=== PATIENT | female | born 1935 | race Caucasian/White ===

== ENCOUNTER 2017-10-29 14:25 | Emergency (ER) | payer MEDICARE, BC ==
[2017-10-29 14:38] VITALS: BP 146/84
[2017-10-29] MEDS ORDERED: Acetaminophen 325 MG Tab PO ONE (14:55)
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
--- NOTE | 2017-10-30 11:00 | CR ---
Heart size within normal limits. No pneumothorax. Elevated right hemidiaphragm. Hiatal hernia. No foc al consolidation.
== END 2017-10-29 15:42 | disposition home or self-care (01) ==
LOC: JP.ED 14:25
DX: S20.20XA Contusion of thorax, unspecified, initial encounter (principal); F41.9 Anxiety disorder, unspecified; Z79.899 Other long term (current) drug therapy; Z88.0 Allergy status to penicillin; Z88.1 Allergy status to other antibiotic agents; Z88.5 Allergy status to narcotic agent; Z91.041 Radiographic dye allergy status; V87.7XXA Person injured in collision between other specified motor vehicles (traffic), initial encounter
CPT/HCPCS: 71046; 99283; 99285; A9270